=== PATIENT | female | born 1955 | race Caucasian/White ===

== ENCOUNTER 2019-05-12 20:54 | Emergency (ER) | payer OTHER ==
[~2019-05-12] VITALS: Ht 149.9 cm; Wt 68.0 kg
[2019-05-12 20:54] VITALS: BP 184/104
[2019-05-13 00:18] VITALS: BP 153/77
== END 2019-05-13 00:18 | disposition home or self-care (01) ==
LOC: MED 20:54
DX: H10.212 Acute toxic conjunctivitis, left eye (principal); I10 Essential (primary) hypertension
CPT/HCPCS: 99283